=== PATIENT | female | born 1985 | race Caucasian/White ===

== ENCOUNTER 2020-10-21 19:00 | Emergency (ER) | payer OTHER ==
[2020-10-21] MEDS ORDERED: VIBRAMYCIN100 MG PO (19:57)
== END 2020-10-21 20:00 | disposition home or self-care (01) ==
LOC: FER 19:00
DX: S30.864A Insect bite (nonvenomous) of vagina and vulva, initial encounter (principal); Z88.5 Allergy status to narcotic agent; Z88.1 Allergy status to other antibiotic agents; Z88.8 Allergy status to other drugs, medicaments and biological substances; Z88.6 Allergy status to analgesic agent; W57.XXXA Bitten or stung by nonvenomous insect and other nonvenomous arthropods, initial encounter
CPT/HCPCS: 99281

== ENCOUNTER 2021-08-18 11:11 | Emergency (ER) | payer OTHER ==
[~2021-08-18 11:11] MED LIST: VIBRAMYCIN100 MG PO
[2021-08-18 13:42] LABS: CORONAVIRUS 2019 SARS-COV-2 NEGATIVE (NEGATIVE); INFLUENZA A NAA NEGATIVE (NEGATIVE)
[2021-08-18] MEDS ORDERED: CEPHALEXIN500 MG PO (14:06)
== END 2021-08-18 14:16 | disposition home or self-care (01) ==
LOC: FER 11:11
PROVIDERS: Nurse Practitioner Family
DX: J06.9 Acute upper respiratory infection, unspecified (principal); I10 Essential (primary) hypertension; Z88.0 Allergy status to penicillin; Z88.1 Allergy status to other antibiotic agents; Z20.822 Contact with and (suspected) exposure to COVID-19
CPT/HCPCS: 71045; U0002

== ENCOUNTER 2021-12-13 13:28 | Emergency (ER) | payer OTHER ==
[~2021-12-13 13:28] MED LIST changes: +CEPHALEXIN500 MG PO
[2021-12-13 15:17] LABS: INFLUENZA A NAA NEGATIVE (NEGATIVE)
[2021-12-13 15:34] LABS: CORONAVIRUS 2019 SARS-COV-2 POSITIVE (NEGATIVE)
[2021-12-13] MEDS ORDERED: VENTOLIN HFA IN18 GM INH (15:57)
== END 2021-12-13 17:08 | disposition home or self-care (01) ==
LOC: FER 13:28
PROVIDERS: Nurse Practitioner Family
DX: U07.1 COVID-19 (principal); Z88.1 Allergy status to other antibiotic agents; Z88.0 Allergy status to penicillin; Z28.310 Unvaccinated for COVID-19
CPT/HCPCS: 99283; U0002

== ENCOUNTER 2021-12-18 12:37 | Emergency (ER) | payer OTHER ==
[~2021-12-18 12:37] MED LIST changes: +VENTOLIN HFA IN18 GM INH
[2021-12-18 13:51] LABS: INFLUENZA A NAA NEGATIVE (NEGATIVE)
[2021-12-18 14:59] LABS: CORONAVIRUS 2019 SARS-COV-2 POSITIVE (NEGATIVE)
== END 2021-12-18 15:23 | disposition home or self-care (01) ==
LOC: FER 12:37
PROVIDERS: Physician Assistant
DX: U07.1 COVID-19 (principal); Z28.310 Unvaccinated for COVID-19
CPT/HCPCS: 99283; U0002